=== PATIENT | female | born 1960 | race Caucasian/White ===

== ENCOUNTER → 2021-11-11 11:15 | Outpatient (POV) | payer SELFPAY | PROVIDERS: Visit Provider Dermatology | DX: Z00.00 Encounter for general adult medical examination without abnormal findings (principal) ==

== ENCOUNTER → 2021-12-02 09:17 | Outpatient (POV) | payer SELFPAY | PROVIDERS: Visit Provider Dermatology | DX: Z00.00 Encounter for general adult medical examination without abnormal findings (principal) ==

== ENCOUNTER 2022-07-20 13:43 | Emergency (ER) | payer MEDICARE, SELFPAY ==
[2022-07-20] VITALS (7 sets, daily range): BP systolic 85–154; BP diastolic 49–100; PULSE 76–82; RESP 16–20; TEMP 36.7–37; O2SAT 94–96; BMI 29.2
--- NOTE | 2022-07-20 13:38 | ECG_ITS ---
APPROVED REPORT Exam: Resting ECG HR:81 bpm ECG Measurements Heart Rate 81 AXES MD 187 P 68 QRSd 78 QRS 87 QT 378 T 62 QTc 416 Conclusion SINUS RHYTHM NORMAL ECG UNCONFIRMED REPORT Electronically signed by : Miguel Javier MD 07/21/2022 20:10:36
--- NOTE | 2022-07-20 13:41 | XR_ITS ---
FINAL REPORT CLINICAL HISTORY: Precordial chest pain COMPARISON: None FINDINGS: A single portable view of the chest was obtained. The heart size and pulmonary vascularity are within normal limits. The mediastinum is within normal limits. No acute pulmonary abnormality is identified. The bony thorax is intact. IMPRESSION: No active cardiopulmonary disease. Reviewed, Interpreted and Dictated by Issac Quintanilla III, MD Transcribed by Alma Urban Authenticated and [facility]
[2022-07-20 14:12] LABS: Chloride 102 mmol/L (98-107); Potassium 3.7 mmoL/L (3.5-5.1); Sodium 139 mmol/L (136-145)
[2022-07-20 14:14] LABS: Blood Urea Nitrogen 23 mg/dl (7-17); Creatinine Clearance Estimated 67 mL/min (50-200); Estimated Glomerular Filt Rate 73 ml/min (>60); GFR (African American) 88 ML/MIN (>60)
[2022-07-20 14:15] LABS: Alanine Aminotransferase 34 U/L (12-78); Albumin Level 4.5 g/dl (3.5-5.0); Albumin/Globulin Ratio 1.6 (1.1-1.8); Alkaline Phosphatase 72 U/L (38-126); Anion Gap 13.7 mEq/L (5-15); Aspartate Amino Transferase 33 U/L (14-36); Bilirubin,Total 0.3 mg/dl (0.2-1.3); Calcium 9.1 mg/dl (8.4-10.2); Carbon Dioxide 27 mmol/L (22.0-30.0); Globulin 2.9 g/dL (1.3-3.2); Glucose 148 mg/dl (74-100); Total Protein,Serum 7.4 g/dl (6.3-8.2)
[2022-07-20 14:27] LABS: Basophils # 0.1 K/mm3 (0-0.2); Basophils % 0.5 % (0.1-2.0); Eosinophils # 0.1 K/mm3 (0.0-0.4); Hematocrit 49.4 % (37.0-47.0); Hemoglobin 15.3 g/dL (12.2-16.2); Lymphocytes # 2.8 K/mm3 (0.7-4.5); Lymphocytes % 27.9 % (10-50); Mean Corpuscular HGB Conc 30.9 g/dL (31.8-35.4); Mean Platelet Volume 7.3 fl (7.4-10.4); Monocytes # 0.5 K/mm3 (0.1-1.0); Monocytes % 4.7 % (1.7-9.3); Neutrophils # 6.6 K/mm3 (1.8-7.8); Platelet Count 276 K/mm3 (142-424); Red Blood Count 5.09 M/mm3 (4.20-5.40); Red Cell Distribution Width 13.6 % (11.5-17.5)
[2022-07-20 14:33] LABS: Troponin I < 0.01 ng/ml (0.00-0.034)
--- NOTE | 2022-07-20 15:21 | PC.NURSE ---
Rounded on pt. No needs at this time.
--- NOTE | 2022-07-20 15:49 | PC.NURSE ---
ROUNDED ON PATIENT, DECAF COFFEE GIVEN TO PATIENT, SPOUSE AT BEDSIDE
--- NOTE | 2022-07-20 15:58 | CT_ITS ---
PROCEDURE INFORMATION: Exam: CT Abdomen And Pelvis Without Contrast Exam date and time: 07/20/2022 4:19 PM Age: 61 years old Clinical indication: Abdominal pain; Epigastric; Additional info: Epigastric pain TECHNIQUE: Imaging protocol: Computed tomography of the abdomen and pelvis without contrast. Radiation optimization: All CT scans at this facility use at least one of these dose optimization techniques: automated exposure control; mA and/or kV adjustment per patient size (includes targeted exams where dose is matched to clinical indication); or iterative reconstruction. REPORTING DATA: Count of CT and Cardiac NM exams in prior 12 months: This patient has received 0 known CTs and 0 known cardiac nuclear medicine studies in the 12 months prior to the current study. COMPARISON: CR XR CHEST PORTABLE 07/20/2022 2:00 PM FINDINGS: Lungs: Calcified granuloma posteriorly right lower lobe Liver: Hepatic steatosis. Gallbladder and bile ducts: Normal. No calcified stones. No ductal dilation. Pancreas: Normal. No ductal dilation. Spleen: Evidence of prior splenic granulomatous disease. Adrenal glands: 7 mm fat containing left adrenal nodule. Findings compatible with an adrenal adenoma. Kidneys and ureters: Bilateral perinephric stranding. Findings nonspecific and may reflect acute versus chronic inflammatory change.. Stomach and bowel: diverticulosis Appendix: No evidence of appendicitis. Intraperitoneal space: Unremarkable. No free air. No significant fluid collection. Vasculature: Scattered regions of atherosclerotic vascular calcification within the abdominal aorta and common iliac arteries. Lymph nodes: Unremarkable. No enlarged lymph nodes. Urinary bladder: Unremarkable as visualized. Reproductive: Unremarkable as visualized. Bones/joints: Lumbar spondylosis. Prominent 5 mm disc protrusion at L5-S1. Soft tissues: Unremarkable. Other findings: Trace fluid in the pelvis. IMPRESSION: No evidence of acute abnormality.
--- NOTE | 2022-07-20 16:00 | HMH.EDGENADL ---
Discharge Plan Disposition Patient Disposition: Home, Self-Care Condition: Fair Chief Complaint: Chest Pain Prescriptions Prescriptions: No Action ranolazine 500 mg tablet extended release 12 hr 500 mg PO DAILY Label Comments: TAKE 1 TABLET BY MOUTH TWICE A DAY bisoprolol fumarate 10 mg tablet 10 mg PO DAILY Label Comments: TAKE 1 TABLET BY MOUTH EVERY DAY pantoprazole 40 mg tablet,delayed release (DR/EC) 40 mg PO DAILY Label Comments: TAKE 1 TABLET BY MOUTH EVERY DAY amlodipine 5 mg tablet 5 mg PO DAILY Label Comments: TAKE 1 TABLET BY MOUTH DAILY Farxiga 5 mg tablet 5 mg PO DAILY Label Comments: TAKE 1 TABLET BY MOUTH EVERY DAY atorvastatin 40 mg Tablet 40 mg PO HS hydrocodone-acetaminophen 5-325 mg Tablet 1 tab PO BID PRN (Reason: Pain) famotidine 40 mg Tablet 40 mg PO DAILY clopidogrel [Plavix] 75 mg Tablet 75 mg PO DAILY aspirin [Aspir-81] 81 mg Tablet,Delayed Release (Dr/Ec) 81 mg PO DAILY trazodone 100 mg Tablet 100 mg PO HS lisinopril-hydrochlorothiazide 20-25 mg Tablet 1 tab PO DAILY furosemide [Lasix] 20 mg Tablet 20 mg PO NEEDED PRN (Reason: Edema) Referrals Follow up/Referrals: Rajwinder Boyd APRN [Primary Care Provider] - See instructions Clinical Impressions Clinical Impression: Chest pain Instructions Patient Instructions: DI for Chronic Pain -- Adult Discharge ED Provider: Dmitri Dodd Adult HPI General Chief complaint: Chest Pain Stated complaint: CP Time Seen by Provider: 07/20/22 15:00 Mode of Arrival: EMS Limitations: No Limitations Description of Symptoms (Recalled from ER Triage Doc. by RN): Pt arrived via EMS complaining of mid-sternal chest pain for 5 days that radiates around her back. She states she has gotten very short of breath off and on. She did receive asa 324 mg and 2 doses of nitro, both PO. She rates her pain a 0/10 currently. History of Present Illness HPI narrative: This is a 61-year-old white female who presents with 5 days of substernal/epigastric pain that goes through to her back has been going on for 5 days. Patient describes the pain as burning nonprovoked partial relief with nitroglycerin. Patient denied any new cough or shortness of breath. No fevers or chills no dysuria pyuria hematuria Related Data Home Medications Medication Instructions Recorded Confirmed amlodipine 5 mg tablet 5 mg PO DAILY High blood pressure 04/06/22 07/20/22 bisoprolol fumarate 10 mg tablet 10 mg PO DAILY High blood pressure 04/06/22 07/20/22 dapagliflozin propanediol 5 mg 5 mg PO DAILY DM 04/06/22 07/20/22 tablet (Farxiga) pantoprazole 40 mg tablet,delayed 40 mg PO DAILY gerd 04/06/22 07/20/22 release ranolazine 500 mg tablet,extended 500 mg PO DAILY Chest pain 04/06/22 07/20/22 release,12 hr aspirin 81 mg tablet,delayed 81 mg PO DAILY hx of stent 07/20/22 07/20/22 release atorvastatin 40 mg tablet 40 mg PO HS hyperlipedema 07/20/22 07/20/22 clopidogrel 75 mg tablet (Plavix) 75 mg PO DAILY hx of stent 07/20/22 07/20/22 famotidine 40 mg tablet 40 mg PO DAILY gerd 07/20/22 07/20/22 furosemide 20 mg tablet (Lasix) 20 mg PO NEEDED PRN Edema 07/20/22 07/20/22 hydrocodone 5 mg-acetaminophen 325 1 tab PO BID PRN Pain 07/20/22 07/20/22 mg tablet lisinopril 20 1 tab PO DAILY High blood pressure 07/20/22 07/20/22 mg-hydrochlorothiazide 25 mg tablet trazodone 100 mg tablet 100 mg PO HS sleep 07/20/22 07/20/22 Allergies Allergy/AdvReac Type Severity Reaction Status Date / Time butorphanol Allergy Difficulty Verified 07/20/22 14:05 Breathing chlorpheniramine Allergy Palpitation Verified 07/20/22 14:05 s diphenhydramine Allergy Palpitation Verified 07/20/22 14:05 [From Benadryl] s phenylephrine Allergy Palpitation Verified 07/20/22 14:05 s pseudoephedrine Allergy Palpitation Verified 07/20/22 14:05 s
--- NOTE | 2022-07-20 16:23 | HMH.ITSTN ---
pt is allergic to oral and IV contrast- advised nurse and dr and he wanted it done without contrast - modified order
== END 2022-07-20 17:18 | disposition home or self-care (01) ==
PROVIDERS: Emergency Provider Emergency Medicine; PCP Nurse Practitioner
DX: R07.89 Other chest pain (principal); R10.13 Epigastric pain; F17.200 Nicotine dependence, unspecified, uncomplicated
CPT/HCPCS: 71045; 74176; 80053; 84484; 85025; 93005; 99285